=== PATIENT | male | born 2000 | race Caucasian/White ===

== ENCOUNTER 2024-12-12 15:42 | Outpatient (CLI) | payer BC, SELFPAY | END 2024-12-12 15:43 | disposition home or self-care (01) | PROVIDERS: PCP Emergency Medicine; Visit Provider Emergency Medicine | DX: K62.5 Hemorrhage of anus and rectum (principal); F41.8 Other specified anxiety disorders | CPT/HCPCS: 80048; 82728; 84443; 86140 ==

== ENCOUNTER 2025-05-08 13:25 | Outpatient (CLI) | payer BC, SELFPAY | END 2025-05-08 13:26 | disposition home or self-care (01) | LOC: NFLDREF 05-15 02:28 | PROVIDERS: Visit Provider Physician Assistant Medical | DX: Z11.3 Encounter for screening for infections with a predominantly sexual mode of transmission (principal) | CPT/HCPCS: 87563; 87798 ==